=== PATIENT | female | born 1945 | race Caucasian/White ===

== ENCOUNTER 2016-12-03 04:29 | Emergency (ER) | payer OTHER, MEDICARE ==
[~2016-12-03] VITALS: Ht 182.9 cm; Wt 82.2 kg
[2016-12-03 05:12] LABS: BASOPHIL % 0.8 % (0-2); PLATELET COUNT 277 x10^3mcL (130-400); RED CELL DISTRIBUTION WIDTH 13.1 % (11.5-14.5); microscopic required? YES; urine erythrocyte 2+ (NEGATIVE)
[2016-12-03 05:33] LABS: ALKALINE PHOSPHATASE 105 U/L (46-116); ALT/SGPT 34 U/L (14-59); AST/SGOT 29 U/L (15-37); BILIRUBIN TOTAL 0.5 mg/dL (0.20-1.00); CARBON DIOXIDE 27.6 mmol/L (21-32); CHLORIDE SERUM 105 mmol/L (98-107); CREATININE SERUM 0.7 mg/dL (0.6-1.0); GFR1 > 60 mL/min; GLUCOSE SERUM 111 mg/dL (74-106); POTASSIUM SERUM 3.4 mmol/L (3.5-5.1); SODIUM SERUM 142 mmol/L (136-145); TOTAL PROTEIN, SERUM 7.7 g/dL (6.4-8.2)
[2016-12-03 05:55] VITALS: BP 140/83
== END 2016-12-03 05:55 | disposition home or self-care (01) ==
LOC: ED 04:29
PROVIDERS: Emergency Medicine
DX: N39.0 Urinary tract infection, site not specified (principal); I10 Essential (primary) hypertension; I48.91 Unspecified atrial fibrillation; E78.00 Pure hypercholesterolemia, unspecified; Z88.5 Allergy status to narcotic agent; Z90.710 Acquired absence of both cervix and uterus
CPT/HCPCS: 36415; J0696

== ENCOUNTER 2018-07-06 03:07 | Emergency (ER) | payer OTHER, MEDICARE ==
[~2018-07-06] VITALS: Ht 182.9 cm; Wt 79.8 kg
[2018-07-06 03:13] VITALS: Ht 182.9 cm; Wt 79.8 kg
[2018-07-06] MEDS ORDERED: ELIQUIS5 MG (03:34)
[2018-07-06] MEDS ORDERED: HYDROCHLOROTHIA25 MG PO (03:35)
[2018-07-06] MEDS ORDERED: ZESTRIL20 MG PO (03:36)
[2018-07-06] MEDS ORDERED: SIMVASTATIN10 M1 PO (03:36)
[2018-07-06] MEDS ORDERED: ZOLOFT100 MG PO (03:37)
[2018-07-06] MEDS ORDERED: GOOD SENSE OMEP20 MG PO (03:37)
[2018-07-06] MEDS ORDERED: ATENOLOL25 MG PO (03:37)
[2018-07-06 04:02] LABS: BASOPHIL % 0.3 % (0-2); PLATELET COUNT 230 x10^3mcL (130-400)
[2018-07-06 04:03] LABS: CALCIUM 9.7 mg/dL (8.5-10.1); CARBON DIOXIDE 29.1 mmol/L (21-32); CHLORIDE SERUM 104 mmol/L (98-107); CREATININE SERUM 0.7 mg/dL (0.6-1.0); GLUCOSE SERUM 121 mg/dL (74-106); POTASSIUM SERUM 3.7 mmol/L (3.5-5.1); SODIUM SERUM 142 mmol/L (136-145)
[2018-07-06 04:08] LABS: ALBUMIN 3.8 g/dL (3.4-5.0); ALKALINE PHOSPHATASE 94 U/L (46-116); ALT/SGPT 40 U/L (14-59); AST/SGOT 82 U/L (15-37); BILIRUBIN TOTAL 0.48 mg/dL (0.20-1.00); TOTAL PROTEIN, SERUM 7.2 g/dL (6.4-8.2)
[2018-07-06 04:09] LABS: RED CELL DISTRIBUTION WIDTH 14.6 % (11.5-14.5)
[2018-07-06 04:42] VITALS: BP 147/67
== END 2018-07-06 04:42 | disposition short-term general hospital (02) ==
LOC: ED 03:07
PROVIDERS: Emergency Medicine
DX: I24.9 Acute ischemic heart disease, unspecified (principal); I10 Essential (primary) hypertension; E11.9 Type 2 diabetes mellitus without complications; E78.5 Hyperlipidemia, unspecified; E78.00 Pure hypercholesterolemia, unspecified; Z90.710 Acquired absence of both cervix and uterus; Z88.5 Allergy status to narcotic agent
CPT/HCPCS: 83880; J1644; Q0092